=== PATIENT | male | born 1990 | race Caucasian/White ===

== ENCOUNTER 2018-02-01 21:20 | Observation (INO) | payer BC ==
--- NOTE | 2018-02-01 21:56 | EDPHY ---
H & P Stated Complaint: HIT IN PERINEUM WITH WEIGHT AT CLIMBING GYM, NOW BLEEDING OUT PENIS Time Seen by Provider: 02/01/18 21:56 HPI/ROS: HPI CHIEF COMPLAINT: Trauma to the groin HISTORY OF PRESENT ILLNESS: 27-year-old male, otherwise healthy not on any medications he presents emergency room after he states he got injured at the gym. Patient states that he was hanging from a rope and on the other end of the rope there was a circular weight attached to the rope when he hung on the wrote the circular weight went up in the air and struck him in the groin it mainly struck him in the perineal region. He denies any testicular trauma or testicular pain. Immediately after having this trauma he started having gross hematuria. He was able to urinate. This happened 2 hr ago. He presents emergency room with gross hematuria. He states the main pain is in the perineal region. There is no perineal laceration on exam. He has gross hematuria on exam coming from his penile urethra. No testicular pain no shaft injury no glands injury. Of note this patient states he had a similar injury years ago when a skateboard hit him in the groin and he had a contusion to his urethra. Past Medical History: No significant medical history Past Surgical History: No significant surgical history Social History: Denies drugs alcohol tobacco. Family History: Noncontributory ROS REVIEW OF SYSTEMS: A comprehensive 10 point review of systems is otherwise negative aside from elements mentioned in the history of present illness. Exam Constitutional triage nursing summary reviewed, vital signs reviewed, awake/ alert. Eyes normal conjunctivae and sclera, EOMI, PERRLA. HENT normal inspection, atraumatic, moist mucus membranes, no epistaxis, neck supple/ no meningismus, no raccoon eyes. Respiratory clear to auscultation bilaterally, normal breath sounds, no respiratory distress, no wheezing. Cardiovascular rate normal, regular rhythm, no murmur, no edema, distal pulses normal. Gastrointestinal soft, non-tender, no rebound, no guarding, normal bowel sounds, no distension, no pulsatile mass. Genitourinary exam: No significant tenderness on exam, no testicular tenderness, penile shaft and glans normal, at the penile meatus there is gross hematuria, the peroneal area is intact there is no visible signs of trauma between the anus and scrotum there is no laceration however when you press on this area gross hematuria comes from the urethral meatus. Musculoskeletal no midline vertebral tenderness, full range of motion, no calf swelling, no tenderness of extremities, no meningismus, good pulses, neurovascularly intact. Skin pink, warm, & dry, no rash, skin atraumatic. Neurologic awake, alert and oriented x 3, AAOx3, moves all 4 extremities equally, motor intact, sensory intact, CN II-XII intact, normal cerebellar, normal vision, normal speech. Psychiatric normal mood/affect. Heme/Lymph/Immune no lymphadenopathy. Differential Diagnosis: Includes but is not limited to in a particular order urethral tear, urethral contusion, peroneal injury, straddle injury, bladder injury Medical Decision Making: Plan for this patient IV establishment blood draw, CT scan pelvis with IV contrast, consult Urology. Re-evaluation: Spoke with Urology Dr. Yrn Krause, who request the patient gets a CT scan of the pelvis with IV contrast as well as a red her great urethra g for urethral trauma given the gross hematuria on exam. RUG has been performed. Dr. Vasquez, states that there was anterior segment type with 5 urethral tear on the rug. There was active extravasation of the contrast instilled for the retrograde urogram. This is indicating a type 5 urethral injury it involves the bulbous anterior segment of the urethra. Will consult Urology for this. 1220: I spoke with Dr. Duran with Urology, he requested we place the 16 Somali catheter if we are unable to advance the Jarvis catheter he will most likely need a suprapubic catheter. 1254AM: I did make an attempt to pass a 16 Somali Jarvis catheter however met resistance and stopped. Did not want cause him further trauma harm. I will contact Urology. 0101AM: Spoke with Dr. Krause, discussed the case in detail he will come and see the patient. Source: Patient - Personal History Current Tetanus/Diphtheria Vaccine: Yes - Medical/Surgical History Hx Asthma: No Hx Chronic Respiratory Disease: No Hx Diabetes: No Hx Cardiac Disease: No Hx Renal Disease: No Hx Cirrhosis: No Hx Alcoholism: No Hx HIV/AIDS: No Hx Splenectomy or Spleen Trauma: No Other PMH: RUPTURED URETHRA, ANKLE SURG - Social History Smoking Status: Never smoked Constitutional: Initial Vital Signs Temperature (C) 36.6 C 02/01/18 21:22 Heart Rate 68 02/01/18 21:22 Respiratory Rate 18 02/01/18 21:22 Blood Pressure 101/64 02/01/18 21:22 O2 Sat (%) 96 02/01/18 21:22 O2 Delivery Mode Room Air Allergies/Adverse Reactions: No Known Allergies Allergy (Verified 02/02/18 08:59) Home Medications: Medication Instructions Recorded Hydrocodone/Acetaminophen [Maspeth 1 - 2 each PO Q6HRS PRN #25 tablet 02/02/18 7.5-325 Tablet] Medical Decision Making - Data Points Laboratory Results: Laboratory Results 02/01/18 21:40 02/01/18 21:40 Medications Given: Hydrocodone Bitart/Acetaminophen (Maspeth 5/325) 1 - 2 tab PO Q6 PRN PRN Reason: Pain, Moderate Able to Take PO Stop: 02/12/18 04:24 Last Admin: 02/02/18 19:01 Dose: 2 tab Hydromorphone HCl (Dilaudid) 0.2 mg IVP Q2HRS PRN PRN Reason: pain refractory to norco Stop: 02/12/18 04:24 Last Admin: 02/02/18 15:28 Dose: 0.2 mg Cefazolin Sodium/Dextrose (Ancef 1 Gm (Premix)) 50 mls @ 200 mls/hr IV Q8H KACEY PRN Reason: Protocol Stop: 03/04/18 11:29 Last Admin: 02/02/18 20:32 Dose: Not Given Dextrose/Sodium Chloride (D5w 1/2 Ns) 1,000 mls @ 100 mls/hr IV CONT KACEY Stop: 08/01/18 04:29 Last Admin: 02/02/18 06:06 Dose: 1,000 mls Discontinued Medications Fentanyl (Sublimaze) 50 mcg IVP EDNOW ONE Stop: 02/01/18 22:04 Last Admin: 02/01/18 22:14 Dose: 50 mcg Fentanyl (Sublimaze) 50 mcg IVP EDNOW ONE Stop: 02/01/18 23:15 Last Admin: 02/01/18 23:15 Dose: 50 mcg Fentanyl (Sublimaze) 50 mcg IVP EDNOW ONE Stop: 02/02/18 00:29 Last Admin: 02/02/18 00:43 Dose: 50 mcg Fentanyl (Sublimaze) 50 mcg IVP EDNOW ONE Stop: 02/02/18 02:32 Last Admin: 02/02/18 02:33 Dose: 50 mcg Fentanyl (Sublimaze) 25 - 100 mcg IVP Q5M PRN PRN Reason: PACU, IMMEDIATE Pain control Stop: 02/02/18 05:16 Last Admin: 02/02/18 04:42 Dose: 50 mcg Sodium Chloride (Ns) 1,000 mls @ 0 mls/hr IV ONCE ONE PRN Reason: Wide Open Stop: 02/01/18 22:16 Last Admin: 02/01/18 22:29 Dose: 1,000 mls Lactated Ringer's (Lr) 1,000 mls @ 0 mls/hr IV ONCE ONE PRN Reason: KVO Stop: 02/02/18 03:05 Last Admin: 02/02/18 05:59 Dose: Not Given Cefoxitin Sodium 2 gm/ Sodium (Chloride) 100 mls @ 200 mls/hr IV ONCALL ONE PRN Reason: Protocol Stop: 02/02/18 03:43 Last Admin: 02/02/18 05:54 Dose: Not Given Cefazolin Sodium/Dextrose (Ancef 2 Gm) 100 mls @ 200 mls/hr IV EDNOW ONE PRN Reason: Protocol Stop: 02/02/18 04:16 Last Admin: 02/02/18 05:54 Dose: Not Given Departure - Departure Disposition: [facility] Acute Clinical Impression: Urethral tear Qualifiers: Encounter type: initial encounter Qualified Code(s): S37.33XA - Laceration of urethra, initial encounter Condition: Critical
[2018-02-01] MEDS ORDERED: fentaNYL 100 MCG/2 ML INJ IVP ONE ×2 (22:03→23:14)
[2018-02-01] MEDS ORDERED: NS 1,000 ML IV ONE (22:15)
[2018-02-01 22:23] LABS: PLATELET COUNT 274 10^3/uL (150-400)
[2018-02-01 22:35] LABS: INR 1.03 (0.83-1.16); PROTIME(PATIENT) 13.7 SEC (12.0-15.0)
[2018-02-01] MEDS ORDERED: IOTHALAMATE MEG (CYSTO-CONRAY II) 250 ML VIAL BLADIN ONE (22:53)
[2018-02-01] MEDS ORDERED: IOPAMIDOL (ISOVUE-300) 100 ML BTL ONE (23:56)
[2018-02-02] MEDS ORDERED: fentaNYL 100 MCG/2 ML INJ IVP ONE ×2 (00:28→02:31)
[2018-02-02] MEDS ORDERED: fentaNYL 100 MCG/2 ML INJ ONE ×3 (02:27→04:33)
--- NOTE | 2018-02-02 03:00 | PDANEPAE ---
ANE History of Present Illness 27 year old with urethral injury ANE Past Medical History - Pulmonary History Hx Oxygen in Use at Home: No - Endocrine History Hx Diabetes: No ANE Review of Systems Review of systems is: negative Review of Systems: ANE Patient History - Allergies Allergies/Adverse Reactions: No Known Allergies Allergy (Unverified 02/01/18 21:22) - Home Medications Home Medications: NK [No Known Home Meds] 02/01/18 [Last Taken Unknown] - NPO status NPO Status: no food or drink >8 hours - Smoking Hx Smoking Status: Never smoked ANE Labs/Vital Signs - Labs Result Diagrams: 02/01/18 21:40 02/01/18 21:40 - Vital Signs Blood Pressure: 116/67 Heart Rate: 59 Respiratory Rate: 18 O2 Sat (%): 94 Height: 180.34 cm Weight: 65.771 kg ANE Physical Exam - Airway Neck exam: FROM Mallampati Score: Class 1 Mouth exam: normal dental/mouth exam - Pulmonary Pulmonary: no respiratory distress, clear to auscultation - Cardiovascular Cardiovascular: regular rate and rhythym - ASA Status ASA Status: I, E ANE Anesthesia Plan Anesthesia Plan: general endotracheal anesthesia
[2018-02-02] MEDS ORDERED: LR 1,000 ML IV ONE (03:04)
[2018-02-02] MEDS ORDERED: PROPOFOL 200 MG/20 ML VIAL ONE (03:14)
[2018-02-02] MEDS ORDERED: cefOXitin SODIUM 2 GM in NS 100 ML IV ONE (03:14)
--- NOTE | 2018-02-02 03:14 | SOAPPROG ---
SOAP Progress Note Assessment/Plan: Assessment: Plan: Consult note # [id number] Objective: Vital Signs Temp Pulse Resp BP Pulse Ox 36.8 C 74 99 H 111/67 94 02/02/18 03:02 02/02/18 03:02 02/02/18 03:02 02/02/18 03:02 02/02/18 03:00 PT 13.7 SEC (12.0-15.0) 02/01/18 21:40 INR 1.03 (0.83-1.16) 02/01/18 21:40 ICD10 Worksheet Patient Problems: Problems Problem Status Onset Urethral tear Acute
[2018-02-02] MEDS ORDERED: ceFAZolin 2 GM/DEXTROSE 100 ML IV ONE (03:47)
--- NOTE | 2018-02-02 04:09 | GCON ---
[f rep st] CONSULTATION UROLOGY CONSULTATION NOTE DATE OF CONSULTATION: 02/02/2018 REFERRING PHYSICIAN: Emergency Room REASON FOR CONSULTATION: Urethral trauma, urinary retention. HISTORY: This is a 27-year-old otherwise healthy gentleman who was performing an unconventional type of exercise at a local climbing gym when a large counterweight struck him in the perineum, resulting in blunt perineal trauma. There was significant resulting perineal pain, and he had gross hematuria almost immediately after the injury but since then has been unable to void. He subsequently presented to the emergency room. After Dr. Newman consulted with me, it was decided the patient should undergo a CT scan of the pelvis as well as a retrograde urethrogram. Both of these studies revealed a probable bulbar urethral injury with extravasation of contrast into the surrounding tissue corporal tissue. I instructed Dr. Newman to gently make one attempt to place a Jarvis catheter, but this was unsuccessful. Therefore, I came in to see the patient as a result. Prior to this injury, the patient denies any chronic problems with urination. PAST MEDICAL HISTORY: Healthy. PAST SURGICAL HISTORY: Ankle surgery. ADMISSION MEDICATIONS: None. MEDICAL ALLERGIES: None known. FAMILY HISTORY: Not contributory. SOCIAL HISTORY: The patient is single and lives in the [place] area. He is currently accompanied by his girlfriend, Ruby. He denies use of tobacco nor alcohol products. REVIEW OF SYSTEMS: Unremarkable, other than mentioned above in the HPI and Past Medical History. PHYSICAL EXAM: GENERAL: Thin white male lying supine in bed in mild discomfort presently. VITAL SIGNS: Blood pressure 127/76, pulse 66, respirations 18, oxygen saturation 97% on room air, temperature 36.7 Celsius. Height 180 cm, weight 66 kg, BMI 20. HEENT: Normocephalic, atraumatic. NECK: Supple. HEART: Regular rate. CHEST: Unlabored respiratory pattern. ABDOMEN: Soft with midline suprapubic distention, consistent with a full bladder. No other palpable abnormalities are appreciated. BACK: No CVA tenderness. No associated ecchymosis. GENITALIA: Dried blood is seen surrounding the urethral meatus. Urethral meatus is normal in shape and position. Phallus is otherwise unremarkable. Perineal structures appear intact. There is some mild perineal soft tissue edema without ecchymosis. There is also some mild tenderness to the perineum overlying the bulbar urethra. No penetrating trauma is appreciated. ANUS: Normal in position and shape without blood discharge. EXTREMITIES: Warm, without cyanosis, clubbing, nor edema. VASCULAR: Normal femoral, dorsalis pedis, and posterior tibial pulses bilaterally. NEUROLOGIC: He is alert and oriented. He answers all questions appropriately with normal mood and affect. LABORATORIES: CBC notable for white blood cell count 10,900. Coagulation parameters normal. BMP is normal. RADIOGRAPHIC STUDIES: Retrograde urethrogram: Upon my review, there appears to be a bulbar urethral injury with extravasation into the surrounding spongiosal tissue. Iodinated pelvic CT scan confirms the presence of this urethral injury with extravasation into the surrounding tissue. Prostate appears intact. Bladder does not reveal any obvious injuries and is mildly distended. Lower ureters are opacified with contrast and are normal appearing. No bony structural abnormalities appreciated. PROCEDURES: I decided to proceed with attempted bedside punch suprapubic catheter placement. The lower abdomen was sterilely prepped and draped in standard fashion using Betadine paint. I used a total of approximately 30 cc of 1% lidocaine with epinephrine for local anesthetia. I used a long 21-gauge spinal needle to find the location of the bladder in the suprapubic region, just above the pubis in the midline. There was return of clear urine with the spinal needle. I then made a small rohini in the skin with a scalpel and introduced the suprapubic catheter with stylet and an attached syringe just above the spinal needle. I was able to initially gain entrance into the bladder with aspiration of relatively clear urine; however, upon inflating the balloon, there was no longer any return of urine from the suprapubic catheter. I then made several additional attempts to place the suprapubic catheter with the same results. I did not feel confident that the suprapubic catheter was in correct position and was not confident that it would drain adequately. It should be mentioned that, before introducing any needles or the suprapubic catheter through the skin, the patient was placed in steep Trendelenburg position. The patient tolerated the procedure well overall. IMPRESSION: 1. Significant bulbar urethral injury with resulting gross hematuria and urinary retention. 2. Inability to place bedside suprapubic catheter. PLAN: We will proceed with emergent intraoperative formal suprapubic catheter placement with open bladder cutdown in the lower midline. Patient understands the risks associated with his injury as well as with attempted catheter placement include bleeding, infection, urethral scarring (potentially requiring further surgery in the future), erectile dysfunction, and injury to the surrounding organs (namely bowel and vascular structures). /[id number]/MODL MTDD
[2018-02-02] MEDS ORDERED: NALOXONE HCL 0.4 MG/ML INJ IVP PRN (04:15)
[2018-02-02] MEDS ORDERED: ONDANSETRON 4 MG/2 ML VIAL IVP PRN ×2 (04:15→04:25)
--- NOTE | 2018-02-02 04:24 | POSTOPPROG ---
Post Op Note Date of Operation: 02/02/18 Surgeon: Pietro Krause (# [id number]) Anesthesia: GET(General Endotracheal) Pre-op Diagnosis: Urethral trauma, urinary retention Post-op Diagnosis: Urethral trauma, urinary retention Procedure: Formal suprapubic catheter placement Findings: See op note Inf/Abcess present in the surg proc area at time of surgery?: No EBL: Minimal (< 5 cc) Complications: None Drains: Other (18 Fr. SP tube) Specimen(s): None Text Box - Additional Text Additional Text: Will admit for observation
[2018-02-02] MEDS ORDERED: PROMETHAZINE HCL 25 MG/ML INJ IVP PRN (04:25)
[2018-02-02] MEDS ORDERED: D5W 1/2 NS 1,000 ML IV SCH (04:30)
[2018-02-02] MEDS: fentaNYL 100 MCG/2 ML INJ IVP PRN ×2 (04:35→04:42)
--- NOTE | 2018-02-02 04:54 | GOP ---
[f rep st] OPERATIVE REPORT DATE OF OPERATION: 02/02/2018 SURGEON: Pietro Krause MD ANESTHESIA: General endotracheal. PREOPERATIVE DIAGNOSIS: Bulbar urethral blunt trauma with gross hematuria & urinary retention. POSTOPERATIVE DIAGNOSIS: Bulbar urethral blunt trauma with gross hematuria & urinary retention. PROCEDURE PERFORMED: Formal suprapubic catheter placement. FINDINGS: Some mild subcutaneous ecchymosis surrounding the dome of the bladder. SPECIMENS: None. ESTIMATED BLOOD LOSS: Minimal. INDICATIONS: This gentleman presented to the emergency room this evening with blunt perineal trauma resulting in urethral injury based on CT and retrograde urethrogram. A single attempt to place a Jarvis catheter in the emergency room by the emergency room physician was unsuccessful. I then personally attempted to place a bedside suprapubic punch cystotomy catheter, but was unsuccessful in doing so. As a result, it was recommended the patient be brought to the operating room for formal SP tube placement under general anesthesia. The indications for the procedures as well as potential risks and complications were discussed with the patient preoperatively. He appeared to understand, his questions were answered, and he wished to proceed. Written informed surgical consent was thereafter obtained. DESCRIPTION OF PROCEDURE: The patient was brought to the operating room and administered general endotracheal anesthesia. He was carefully placed in the supine position on the operating room table. The previously placed suprapubic catheter was removed. The lower abdomen and genitalia were sterilely prepped with Betadine scrub and paint then draped in the usual sterile fashion. I made a small vertical midline incision, a few centimeters above the pubic symphysis, with a scalpel and carried this through the anterior abdominal wall with electrocautery carefully. I was ultimately able to identify the location of the bladder and was able to pull it up with Allis clamps. An incision was made into the bladder with electrocautery. There was return of clear urine afterwards. An 18-Egyptian Jarvis catheter was placed through the created cystotomy. A 4-0 chromic suture was used to close the bladder wall around the suprapubic catheter. A 4-0 chromic was also used to initially secure the suprapubic catheter to the bladder seromuscular layer. I then reapproximated the anterior rectus sheath with a running 0 Vicryl suture above and below the suprapubic catheter exit site within the midline of the incision. I then used a 4-0 Monocryl suture in a subcuticular fashion to reapproximate the skin above and below the SP tube exit site. A 2-0 silk stitch was then used to secure the suprapubic catheter to the surrounding skin in the midportion of the incision. The wound was dressed with Dermabond, followed by Telfa, 4 x 4 gauze, and tape. The catheter irrigated manually with return of clear urine. The catheter was then connected to bag drainage. The patient was awakened, transferred to his bed, and taken to the recovery room. He tolerated the procedure well overall. COMPLICATIONS: None. DISPOSITION: He was transferred to the recovery room in stable condition. He will be admitted for observation and hopefully released later today. /[id number]/MODL MTDD
[2018-02-02] MEDS: HYDROmorphONE/DILAUDID 1 MG/ML INJ IVP PRN ×3 (05:24→15:28)
[2018-02-02] MEDS: HYDROCODONE/APAP 5/325 TAB PO PRN ×3 (06:06→19:01)
--- NOTE | 2018-02-02 09:23 | ASMTCMCOM ---
CM Note CM Note Notes: Patient admitted with a urethral injury after a climbing accident. He is POD #0 suprapubic catheter placement. Patient is normally independent, employed, and supported by his girlfriend Ruby. I do not anticipate any discharge needs, but Case Management is available if they arise. Date Signed: 02/02/2018 09:22 AM Electronically Signed By:Marta Ellis RN
[2018-02-02 15:51] VITALS: BP 108/64
--- NOTE | 2018-02-02 18:56 | SOAPPROG ---
SOAP Progress Note Assessment/Plan: Assessment: Blunt perineal trauma with resulting bulbar urethral injury, gross hematuria, & urinary retention -- doing better following emergent intraoperative SP tube placement early this AM. Plan: D/C home. Subjective: Pain around SP tube insertion site. Otherwise, no complaints. Objective: Vital Signs Temp Pulse Resp BP Pulse Ox 36.7 C 66 16 108/64 95 02/02/18 15:48 02/02/18 15:48 02/02/18 15:48 02/02/18 15:48 02/02/18 15:48 02/01/18 02/02/18 02/03/18 05:59 05:59 05:59 Intake Total 150 1200 Output Total 460 3000 Balance -310 -1800 PT 13.7 SEC (12.0-15.0) 02/01/18 21:40 INR 1.03 (0.83-1.16) 02/01/18 21:40 - Time Spent With Patient Time Spent With Patient: > 35 mins. spent w/ pt. & discharge planning Physical Exam - Physical Exam General Appearance: alert, no apparent distress, thin Abdomen: soft, other (mild tenderness surrounding SP tube site (which is clean & dry); urine return via SP is clear) Male Genitalia: normal genitalia Skin: warm/dry Extremities: non-tender, normal inspection Neuro/Psych: alert, normal mood/affect, oriented x 3 ICD10 Worksheet Patient Problems: Problems Problem Status Onset Urethral tear Acute
--- NOTE | 2018-03-02 19:29 | GPROG ---
[f rep st] PROGRESS NOTE PACU DISCHARGE SUMMARY. DATE OF SERVICE: 02/02/2018 The patient is a 27-year-old man who underwent a general anesthesia for a suprapubic catheter placeme nt. The patient arrived in the recovery room in a stable condition, stable vital signs, stable respi ratory status, stable cardiovascular status. /[id number]/MODL
--- NOTE | 2018-03-03 07:11 | GPROG ---
[f rep st] PROGRESS NOTE PACU DISCHARGE SUMMARY DATE OF SERVICE: 02/02/2018 The patient was a 27-year-old man, who underwent a general anesthesia for a suprapubic catheter place ment. Patient arrived in the recovery room in stable condition. Respiratory status stable. Cardiov ascular status stable. Neurologic status stable. Vital signs stable. Patient had an uneventful rec overy room course and was discharged from the recovery room in stable condition. /[id number]/MODL
== END 2018-02-02 20:20 | disposition home or self-care (01) ==
LOC: INTOOBSV 02-02 02:46 → F1N 02-02 05:11
PROVIDERS: ADMIT Specialist; ATTEND Specialist
PROC: 0T9B00Z Drainage of Bladder with Drainage Device, Open Approach (ICD-10-PCS; principal; 2018-02-02 03:00)
DX: S37.33XA Laceration of urethra, initial encounter (principal); R31.0 Gross hematuria; R33.9 Retention of urine, unspecified; E86.9 Volume depletion, unspecified; W22.8XXA Striking against or struck by other objects, initial encounter; Y92.39 Other specified sports and athletic area as the place of occurrence of the external cause; Y93.B9 Activity, other involving muscle strengthening exercises; Y99.9 Unspecified external cause status
CPT/HCPCS: 51045; 72193; 74420; 96361; 96374; 96376; 99285; G0378; J0690; J0694; J1170; J2704; J3010; Q9961; Q9967